=== PATIENT | female | born 1985 | race American Indian/Alaskan Native ===

== ENCOUNTER 2016-10-02 12:38 | Inpatient (IN) | payer MEDICAID ==
[2016-10-02] MEDS ORDERED: LACTATED RINGERS 1,000 ML ONE (13:50)
[2016-10-02] MEDS ORDERED: XYLOCAINE 2% INFILTRATI ONE (13:51)
[2016-10-02] MEDS ORDERED: NARCAN 0.4 MG/1 ML IV PRN (13:51)
[2016-10-02] MEDS ORDERED: BRETHINE SUB-Q PRN (13:51)
[2016-10-02] MEDS ORDERED: ePHEDrine SULFATE IV PRN (13:51)
[2016-10-02] MEDS ORDERED: ZOFRAN IV PRN (13:51)
[2016-10-02] MEDS ORDERED: MINERAL OIL PO PRN (13:51)
[2016-10-02] MEDS ORDERED: BRETHINE IVP PRN (13:51)
[2016-10-02] MEDS ORDERED: PITOCin/NS 20 UNIT/1000ML DRIP 20 UNITS/1,000 ML BAG IV SCH (14:00)
--- NOTE | 2016-10-02 14:18 | History and Physical Report ---
History of Present Illness Date of examination: 10/02/16 Date of admission: 10/02/16 12:38 Chief complaint: Presents from office for labor augmentation History of present illness: Early entry to care, 2nd trimester complicated by +Trichomonas ( Treated with Negative HEBER), also treated for UTI and URI in the ER during the 2nd trimester. Past History Past Medical History: migraines Past Surgical History: other (Arthroscopy: right knee (2013)) [employer] History: trichomonas Family/Genetic History: diabetes (MGM, PGF), cancer (Mother and MGM: Cervical Ca ) Social history: no significant social history, single, smoking (2 cigarettes every other day) - Obstetrical History Expected Date of Delivery: 10/03/16 Actual Gestation: 39 Week(s) 6 Day(s) : 7 Para: 3 Hx # Term Pregnancies: 3 Number of Pregnancies: 0 Spontaneous Abortions: 3 Number of Living Children: 3 #1 Gender: Female year: 2,[birth year] Birthweight: 2.551 kg Method of Delivery: Vaginal Gestational age at delivery: 38 Complications: none #2 Infant Gender: Female year: 2,[birth year] Birthweight: 2.551 kg Method of Delivery: Vaginal Gestational age at delivery: 38 Complications: none #3 Infant Gender: Female year: 2,[birth year] Birthweight: 2.863 kg Method of Delivery: Vaginal Gestational age at delivery: 38 Complications: none Medications and Allergies Allergies Allergy/AdvReac Type Severity Reaction Status Date / Time No Known Allergies Allergy Unverified 12/10/15 11:35 Home Medications Medication Instructions Recorded Confirmed Last Taken Type Ketorolac [Toradol] 10 mg PO Q6H PRN #20 tablet 12/10/15 Unknown Rx Active Meds: Active Medications Butorphanol Tartrate (Stadol) 2 mg IV Q2H PRN PRN Reason: Pain , Severe (7-10) Lactated Ringer's (Lactated Ringers) 1,000 mls @ 125 mls/hr IV DIRECT FUNMILAYO Oxytocin/Sodium Chloride (Pitocin/Ns 20 Unit/1000ml Drip) 20 units in 1,000 mls @ 125 mls/hr IV DIRECT FUNMILAYO Oxytocin/Sodium Chloride (Pitocin/Ns 30 Unit/500ml) 30 units in 500 mls @ 4 mls /hr IV TITR FUNMILAYO PRN Reason: Protocol Mineral Oil (Mineral Oil) 30 ml PO QHS PRN PRN Reason: Constipation Naloxone HCl (Narcan 0.4 Mg/1 Ml) 0.1 mg IV Q2MIN PRN PRN Reason: Res Rate </= 8 or 02 SAT < 92% Ondansetron HCl (Zofran) 4 mg IV Q8H PRN PRN Reason: Nausea And Vomiting Review of Systems All systems: negative - Vital Signs Vital signs: Vital Signs Pulse BP 81 124/70 10/02/16 13:19 10/02/16 13:19 Temp Pulse Resp BP Pulse Ox 81 124/70 10/02/16 13:19 10/02/16 13:19 - Physical Exam Breasts: Positive: normal Cardiovascular: Regular rate Lungs: Positive: Clear to auscultation, Normal air movement Abdomen: Positive: normal appearance, soft, normal bowel sounds Genitourinary (Female): Positive: normal external genitalia, normal perenium Vagina: Positive: normal moisture Uterus: Positive: normal size Anus/Rectum: Positive: normal perianal skin - Obstetrical FHR: category 1 Uterine Contraction Monitor Mode: External Cervical Dilatation: 3.5 (Intact, Vtx) Cervical Effacement Percentage: 70 station: -2 Uterine Contraction Pattern: Irregular Uterine Tone Measurement Phase: Resting Uterine Contraction Intensity: Mild Results All other labs normal. Assessment and Plan A: IUP at 39 6/7 weeks Category I tracing Small for Gestational Size BPD and AC <3% Grade III Placenta GBS Negative P: Admit to L&D Per Routine Orders Pitocin Augmentation
[2016-10-02 14:46] LABS: Hematocrit 38.8 % (30.3-42.9); Hemoglobin 13.4 gm/dl (10.1-14.3); Mean Corpuscular HGB Conc 35 % (30-34); Mean Corpuscular Hemoglobin 31 pg (28-32); Mean Corpuscular Volume 89 fl (79-97); Platelet Count 215 K/mm3 (140-440); Red Blood Count 4.34 M/mm3 (3.65-5.03); White Blood Count 9.3 K/mm3 (4.5-11.0)
[2016-10-02] MEDS: PITOCin/NS 30 UNIT/500ML 30 UNITS/500 ML BAG IV SCH ×2 (16:05→16:35)
[2016-10-02] MEDS ORDERED: CERVIDIL VG ONE (17:05)
[2016-10-02] MEDS: LACTATED RINGERS 1,000 ML IV SCH ×2 (17:10→22:00)
--- NOTE | 2016-10-02 17:13 | Progress Note ---
Assessment and Plan A: IUP at 39 6/7 weeks Category I tracing Small for Gestational Size BPD and AC <3% Grade III Placenta GBS Negative P: Stop Pitocin Fluid Bolus Cervidil Intravaginally x 12 hours Subjective - Subjective Date of service: 10/02/16 Interval history: Early entry to care, 2nd trimester complicated by +Trichomonas ( Treated with Negative HEBER), also treated for UTI and URI in the ER during the 2nd trimester. Objective - Vital Signs Vital Signs: Vital Signs - 12hr 10/02/16 10/02/16 10/02/16 13:19 15:04 16:05 Temperature 98.3 F Pulse Rate 81 93 H Pulse Rate [ 81 From Monitor] Respiratory 20 Rate Blood Pressure 124/70 115/69 Blood Pressure 124/70 [Right Arm] 10/02/16 16:33 Temperature Pulse Rate 85 Pulse Rate [ From Monitor] Respiratory Rate Blood Pressure 121/70 Blood Pressure [Right Arm] - Exam Breasts: normal Cardiovascular: Regular rate Lungs: Clear to auscultation, Normal air movement Abdomen: Present: normal appearance, soft, normal bowel sounds FHR: category 1 Cervical Dilatation: 3 Cervical Effacement Percentage: 70 station: -3 Uterine Contraction Pattern: Irregular Uterine Contraction Intensity: Mild Extremities: normal - Labs Labs: Abnormal Labs 10/02/16 14:10 MCHC 35 H Laboratory Results - last 24 hr 10/02/16 10/02/16 14:10 14:10 WBC 9.3 RBC 4.34 Hgb 13.4 Hct 38.8 MCV 89 MCH 31 MCHC 35 H RDW 15.0 Plt Count 215 Blood Type AB POSITIVE Antibody Screen TNR EDUARDO Antibody Screen Negative
[2016-10-02] MEDS: STADOL IV PRN ×2 (17:25→20:38)
[2016-10-03] MEDS: STADOL IV PRN ×2 (00:40→10:24)
[2016-10-03] MEDS: LACTATED RINGERS 1,000 ML IV SCH ×3 (05:48→11:20)
[2016-10-03] MEDS: PITOCin/NS 30 UNIT/500ML 30 UNITS/500 ML BAG IV SCH ×4 (09:28→11:42)
--- NOTE | 2016-10-03 10:02 | Progress Note ---
Assessment and Plan A: IUP at 39 6/7 weeks Category I tracing Small for Gestational Size BPD and AC <3% Grade III Placenta GBS Negative P: Continue routine labor management Continuous monitoring Pain medication/epidural as desired by patient Subjective - Subjective Date of service: 10/03/16 Principal diagnosis: IOL Interval history: Early entry to care, 2nd trimester complicated by +Trichomonas ( Treated with Negative HEBER), also treated for UTI and URI in the ER during the 2nd trimester. Objective - Vital Signs Vital Signs: Vital Signs - 12hr 10/03/16 10/03/16 10/03/16 00:09 00:11 00:40 Temperature 98.1 F Pulse Rate 70 Pulse Rate [ 70 From Monitor] Respiratory 20 16 Rate Blood Pressure 121/82 Blood Pressure 121/82 [Right Arm] 10/03/16 10/03/16 10/03/16 05:47 05:50 07:29 Temperature 97.6 F Pulse Rate 80 74 Pulse Rate [ 80 From Monitor] Respiratory 20 Rate Blood Pressure 114/56 107/69 Blood Pressure 114/56 [Right Arm] 10/03/16 07:30 Temperature 98.0 F Pulse Rate Pulse Rate [ 90 From Monitor] Respiratory 18 Rate Blood Pressure Blood Pressure 107/69 [Right Arm] - Exam Cardiovascular: Regular rate Lungs: Normal air movement FHR: category 1 FHR comments: 130 with accelerations Uterine Contraction Monitor Mode: External Cervical Dilatation: 2.5 Cervical Effacement Percentage: 50 station: -2 Uterine Contraction Frequency (min): q2-3 Uterine Contraction Pattern: Regular Uterine Tone Measurement Phase: Resting Uterine Contraction Intensity: Moderate Extremities: normal Deep Tendon Reflex Grade: Normal +2 - Labs Labs: Abnormal Labs 10/02/16 14:10 MCHC 35 H Laboratory Results - last 24 hr 10/02/16 10/02/16 14:10 14:10 WBC 9.3 RBC 4.34 Hgb 13.4 Hct 38.8 MCV 89 MCH 31 MCHC 35 H RDW 15.0 Plt Count 215 Blood Type AB POSITIVE Antibody Screen TNR EDUARDO Antibody Screen Negative - Allied health notes Allied health notes reviewed: nursing
[2016-10-03] MEDS ORDERED: ePHEDrine SULFATE ONE (11:00)
--- NOTE | 2016-10-03 11:32 | Anesthesia Consultation ---
Anesthesia Consult and Med Hx Date of service: 10/03/16 - Airway Anesthetic Teeth Evaluation: Good ROM Head & Neck: Adequate Mental/Hyoid Distance: Adequate Mallampati Class: Class II Intubation Access Assessment: Probably Good - Pre-Operative Health Status ASA Pre-Surgery Classification: ASA2 Proposed Anesthetic Plan: Epidural, Spinal - Pulmonary Hx Asthma: No COPD: No Hx Pneumonia: No - Cardiovascular System Hx Hypertension: No - Central Nervous System Hx Seizures: No Hx Psychiatric Problems: No - Endocrine Hx Renal Disease: No Hx End Stage Renal Disease: No Hx Hypothyroidism: No Hx Hyperthyroidism: No - Hematic Hx Anemia: No Hx Sickle Cell Disease: Yes (trait) - Other Systems Hx Alcohol Use: No
[2016-10-03] MEDS ORDERED: NARCAN 2 MG/2 ML IV PRN (12:00)
[2016-10-03] MEDS ORDERED: fentaNYL-BUPIV 2 MCG/ML-0.125% 200 MCG/100 ML BAG EPIDURAL SCH (12:00)
[2016-10-03] MEDS ORDERED: ePHEDrine SULFATE IV PRN (12:00)
--- NOTE | 2016-10-03 13:26 | Procedure Note ---
OB Delivery Note - Delivery Date of Delivery: 10/03/16 Surgeon: RADHA DE LEON Estimated blood loss: other (400cc) - Vaginal Delivery position: OA Delivery induction: cervidil Delivery augmentation: pitocin Delivery monitor: external FHT, external uterine Route of delivery: Delivery placenta: spontaneous Delivery cord: nuchal cord Episiotomy: none Delivery laceration: none Anesthesia: epidural Delivery comments: Baby ksenia Villasenor was born 10/03/2014 @ 1258 over intact perineum. Baby placed immediately to mom's chest/abdomen. Placenta delivered owens side presenting. Baby originally had a good cry but then had decreased respiratory effort, poor tone and color. Cord was clamped and cut by FOB and infant was taken to warmer for assessment. Fundus firm, midline and 3cm below umbilicus. Minimal bleeding. Baby weighed 5lb 7oz with apgars of 6/9. Total ebl 400cc. - Infant A at 1 minute: 6 at 5 minutes: 9 Infant Gender: Female
[2016-10-03] MEDS ORDERED: NORCO 5/325 PO PRN (13:28)
[2016-10-03] MEDS ORDERED: LANSINOH TP PRN (13:28)
[2016-10-03] MEDS ORDERED: TYLENOL PO PRN (13:28)
[2016-10-03] MEDS ORDERED: BENADRYL PO PRN (13:28)
[2016-10-03] MEDS ORDERED: TUCKS PAD TP PRN (13:28)
[2016-10-03] MEDS ORDERED: MILK OF MAGNESIA PO PRN (13:28)
[2016-10-03] MEDS ORDERED: SODIUM CHLORIDE FLUSH SYRINGE 10 ML IV SCH (14:00)
[2016-10-03] MEDS: MOTRIN PO SCH (20:36)
[2016-10-03] MEDS ORDERED: DULCOLAX PR PRN (22:00)
[2016-10-04 02:06] LABS: Hemoglobin 9.7 gm/dl (10.1-14.3)
[2016-10-04] MEDS: MOTRIN PO SCH ×2 (06:30→14:23)
[2016-10-04] MEDS ORDERED: INFED IM ONE ×2 (11:02→15:30)
[2016-10-04] MEDS ORDERED: DEPO-PROVERA (CONTRACEPTION) IM ONE ×2 (11:02→15:30)
--- NOTE | 2016-10-04 11:05 | Progress Note ---
Assessment and Plan A: PP Day #1 Asymptomatic Anemia P: Follow Routine orders Infed 100mg IM x 1 dose Continue PO FESO4 at home Depo Provera prior to discharge RTO in 6 Weeks Subjective - Subjective Date of service: 10/04/16 Principal diagnosis: IOL Interval history: Early entry to care, 2nd trimester complicated by +Trichomonas ( Treated with Negative HEBER), also treated for UTI and URI in the ER during the 2nd trimester. Patient reports: appetite normal, voiding normally, pain well controlled, flatus , ambulating normally [place]: doing well, bottle feeding Objective - Vital Signs Latest vital signs: Vital Signs Temp Pulse Pulse Resp BP BP Pulse Ox 10/04/16 08:30 97.6 F 76 18 113/68 10/04/16 00:00 98.2 F 84 20 102/50 10/03/16 16:40 98.3 F 68 19 112/64 10/03/16 14:04 71 97/59 10/03/16 13:49 71 110/78 10/03/16 13:35 82 121/63 10/03/16 13:19 93 H 109/66 10/03/16 13:18 86 107/55 10/03/16 13:14 88 135/59 10/03/16 13:11 82 88/54 10/03/16 13:10 98.0 F 88 18 107/55 10/03/16 13:09 77 108/55 10/03/16 13:08 75 108/64 10/03/16 13:02 93 H 124/59 10/03/16 12:53 81 99 10/03/16 12:49 88 142/68 10/03/16 12:48 81 160/64 100 10/03/16 12:46 90 177/75 10/03/16 12:43 76 100 10/03/16 12:42 73 150/78 10/03/16 12:39 75 117/58 10/03/16 12:38 86 100 10/03/16 12:37 76 121/69 10/03/16 12:35 75 116/67 10/03/16 12:33 78 110/58 100 10/03/16 12:31 81 119/69 10/03/16 12:29 75 110/59 10/03/16 12:28 76 94 10/03/16 12:27 82 111/60 10/03/16 12:25 73 113/64 10/03/16 12:23 76 115/65 100 10/03/16 12:21 71 114/65 10/03/16 12:19 70 113/68 10/03/16 12:18 69 100 10/03/16 12:17 78 123/68 10/03/16 12:15 78 116/64 10/03/16 12:13 77 115/63 100 10/03/16 12:11 82 117/61 10/03/16 12:09 75 112/59 10/03/16 12:08 66 100 10/03/16 12:07 77 118/63 10/03/16 12:05 85 96/51 10/03/16 12:03 72 98/55 100 10/03/16 12:01 80 98/57 10/03/16 11:59 74 110/72 10/03/16 11:58 95 H 100 10/03/16 11:57 74 110/67 10/03/16 11:55 74 112/65 10/03/16 11:54 75 113/70 10/03/16 11:53 74 100 10/03/16 11:49 80 129/70 10/03/16 11:48 72 100 10/03/16 11:47 73 124/67 10/03/16 11:45 85 112/58 10/03/16 11:43 71 117/62 100 10/03/16 11:41 60 118/60 10/03/16 11:39 71 113/55 10/03/16 11:38 72 100 10/03/16 11:37 71 123/64 10/03/16 11:35 75 123/66 10/03/16 11:33 73 129/69 10/03/16 11:31 89 137/71 10/03/16 11:29 70 122/66 100 10/03/16 11:28 75 0 L 10/03/16 11:27 81 121/66 10/03/16 11:25 74 121/67 10/03/16 11:24 70 100 10/03/16 11:23 71 124/69 10/03/16 11:21 88 126/68 65 L 10/03/16 11:20 97.5 F L 81 20 124/65 10/03/16 11:19 83 117/62 06/27/17 11:18 82 100 10/03/16 11:17 85 124/65 10/03/16 11:15 90 134/68 10/03/16 11:13 77 134/68 100 10/03/16 11:11 101 H 123/94 10/03/16 11:08 85 100 Intake and Output 10/03/16 10/04/16 10/04/16 22:59 06:59 14:59 Intake Total 600 480 Balance 600 480 Intake: Oral 600 480 Other: Total, Intake Amount 240 240 # Voids Void 1 1 - Exam Breasts: Present: normal Cardiovascular: Present: Regular rate Lungs: Present: Clear to auscultation, Normal air movement Abdomen: Present: normal appearance, soft, normal bowel sounds Uterus: Present: normal, firm, fundal height below umbilicus Extremities: Present: normal - Labs Labs: Abnormal lab results 10/04/16 Range/Units 01:34 Hgb 9.7 L D (10.1-14.3) gm/dl Hct 29.0 L D (30.3-42.9) %
--- NOTE | 2016-10-04 11:06 | Discharge Summary ---
Providers - Providers Date of Admission: 10/02/16 12:38 Date of discharge: 10/04/16 Attending physician: LENO BAUTISTA MD Primary care physician: [facility] Hospitalization Reason for admission: induction of labor Delivery: Episiotomy: none Laceration: none Other procedures: none complications: none Discharge diagnosis: IUP at term delivered baby: female Condition at discharge: Good Disposition: DC-01 TO HOME OR SELFCARE Plan - Provider Discharge Summary Activity: routine, no sex for 6 weeks, no heavy lifting 4 weeks, no strenuous exercise Diet: routine Instructions: routine Additional instructions: [] Smoking cessation referral if applicable(refer to patient education folder for contact #) [] Refer to [facility] Booklet Call your doctor immediately for: * Fever > 100.5 * Heavy vaginal bleeding ( >1 pad per hour) * Severe persistent headache * Shortness of breath * Reddened, hot, painful area to leg or breast * Drainage or odor from incision. * Keep incision clean and dry at all times and follow doctor's instructions regarding bathing/showering - Follow up plan Follow up: MARIANELA CHRISTIANSEN CNM [Advanced Practice Nurse] - 6 Weeks
[2016-10-04 15:54] VITALS: BP 108/66
== END 2016-10-04 16:05 | disposition home or self-care (01) | DRG 775 ==
LOC: LD 12:38 → OB 10-03 14:55
PROVIDERS: ADMIT Obstetrics & Gynecology; ATTEND Obstetrics & Gynecology
PROC: 10E0XZZ Delivery of Products of Conception, External Approach (ICD-10-PCS; principal; 2016-10-02)
PROC: 3E0S3CZ (ICD-10-PCS; 2016-10-02)
PROC: 00HU33Z Insertion of Infusion Device into Spinal Canal, Percutaneous Approach (ICD-10-PCS; 2016-10-02)
PROC: 3E0P7GC Introduction of Other Therapeutic Substance into Female Reproductive, Via Natural or Artificial Opening (ICD-10-PCS; 2016-10-02)
DX: O99.354 Diseases of the nervous system complicating childbirth (principal); Z3A.39 39 weeks gestation of pregnancy; Z37.0 Single live birth; G43.909 Migraine, unspecified, not intractable, without status migrainosus; Z83.3 Family history of diabetes mellitus; Z80.49 Family history of malignant neoplasm of other genital organs; O99.334 Smoking (tobacco) complicating childbirth; F17.210 Nicotine dependence, cigarettes, uncomplicated; O99.02 Anemia complicating childbirth; D57.3 Sickle-cell trait; O69.81X0 Labor and delivery complicated by cord around neck, without compression, not applicable or unspecified
CPT/HCPCS: 36415; 85014; 85018; 85027; 86850; 86900; 86901; 99406; J0595; J1050; J1750; J2405; J2590; J7120